=== PATIENT | female | born 1970 | race Caucasian/White ===

== ENCOUNTER → 2025-06-17 10:32 | Outpatient (BNVA) | payer MEDICARE, SELFPAY | PROVIDERS: Visit Provider Podiatrist | DX: E11.621 Type 2 diabetes mellitus with foot ulcer (principal); L97.519 Non-pressure chronic ulcer of other part of right foot with unspecified severity; M67.01 Short Achilles tendon (acquired), right ankle; M21.611 Bunion of right foot; M21.612 Bunion of left foot; R20.2 Paresthesia of skin | CPT/HCPCS: 99203 ==